=== PATIENT | male | born 1995 | race Caucasian/White ===

== ENCOUNTER 2018-01-09 15:21 | Day surgery (SDC) | payer OTHER, SELFPAY ==
[2018-01-09] VITALS (9 sets, daily range): BP systolic 105–123; BP diastolic 46–70; PULSE 59–67; RESP 14–18; TEMP 36.8–37.6; O2SAT 98–100; BMI 23.9; BMI 24.0
--- NOTE | 2018-01-09 15:43 | ED.DCSUM_ITS ---
- ER Visit Summary Date of Service: 01/09/18 Chief Complaint: Right lower quadrant pain History of Present Illness: The patient is a 22 M who developed periumbilical abdominal pain yesterday afternoon. He has had very poor appetite and not wanting to eat. Pain is now moved to the right lower quadrant. He has had some nausea but no vomiting. Denies any prior surgical history. Physical Examination: Vital signs significant for temperature 99.7, otherwise normal. Patient's lying in bed no acute distress. He is nontoxic appearing. Head neck examination unremarkable. Heart is regular rate and rhythm. Lung sounds are clear. Abdomen is soft with diffuse tenderness, worse in the right lower quadrant. He has guarding throughout. Hypoactive bowel sounds are noted. Test Results: CBC reveals white count of 13.8 with 74% neutrophils. Hemoglobin is concentrated at 17.2. Chemistry studies are significant for sodium of 135 and potassium 3.2. Emergency Department Course and Treatment: Patient was given morphine, Zofran, and IV fluids. Upon return of lab work 30 mEq potassium chloride were ordered. Patient was scheduled for CT scan, however Dr. Nixon presented to the emergency room to evaluate another patient. This patient was discussed and evaluated by him. Clinically the patient has appendicitis and Dr. Nixon will plan on taking him to the OR without need for CT scan. Treatment Plan: [] Disposition: Admit Impression: Acute appendicitis This note was generated with [employer] dictation software. It may contain incorrect words, spelling, and punctuation that were not noted in review of the chart prior to signing ED Disposition - Plan for ED Patient: Chief Complaint: Abd Pain Referrals: Care Physician,No Primary [Primary Care Provider] -
[2018-01-09] MEDS: 0.9% Normal Saline 1,000 ML 150 ML IV (16:12)
[2018-01-09] MEDS: Morphine 4 MG/ML Syringe IV (16:13)
[2018-01-09] MEDS: Ondansetron 4 MG/2 ML Vial IV (16:13)
[2018-01-09 16:32] LABS: Absolute Lymphocyte Count 2.07 X10^3/ul (0.83-4.51); Absolute Neutrophil Count 10.3 X10^3/uL (2.0-7.7); Basophil# 0.01 X10^3/uL; Basophil% 0.1 % (0-1); Eosinophil# 0.02 X10^3/uL; Eosinophils% 0.1 % (0-5); Hematocrit 49.6 % (40-54); Hemoglobin 17.2 g/dl (13.0-16.5); Lymphocyte # 2.07 X10^3/ul (4.0); Mean Corp Hgb Conc 34.7 g/gl (32-36); Mean Corpuscular Hgb 31.2 pg (27.0-32.0); Mean Platelet Vol. 10.2 fl (6.2-12.0); Monocyte# 1.38 X10^3/uL; Neutrophil # 10.27 X10^3/uL (2.7-7.7); Neutrophil % 74.7 % (47-70); Platelet Count 222 K/mm3 (150-450); RBC Distribution Width SD 39.3 fl (35.1-43.9); Red Blood Count 5.51 M/mm3 (4.6-6.2); White Blood Count 13.8 K/mm3 (4.4-11.0)
[2018-01-09 16:45] LABS: Anion Gap 8 (5-15); BUN 9 mg/dL (7-18); BUN/Creat Ratio 8.7 RATIO (10-20); Calcium,Total 9.7 mg/dL (8.5-10.1); Chloride 98 mmol/L (98-107); Creatinine, Serum 1.04 mg/dL (0.70-1.30); EST Glomerular Filtration Rate 94 mL/min (>60); Est Glom Filt Rate - Afr Amer 113 mL/min (>60); Estimated Creatinine Clearance 114.06 ml/min; Glucose 98 mg/dL (74-106); POSITIVE COUNT NO; POSITIVE DIFFERENTIAL NO; POSITIVE MORPHOLOGY NO; Potassium 3.2 mmol/L (3.5-5.1); Sodium Level 135 mmol/L (136-145)
--- NOTE | 2018-01-09 17:38 | PCM.CONS.GEN ---
Problem List (1) Acute appendicitis with localized peritonitis Status: Acute Reason for Consult Date of Consultation: 01/09/18 History of Present Illness: The patient is a 22 M who developed periumbilical abdominal pain yesterday afternoon. He has had very poor appetite and not wanting to eat. Pain is now moved to the right lower quadrant. He has had some nausea but no vomiting. Denies any prior surgical history. Patient does have pain to move or cough. Past Medical History Allergies No Known Allergies Allergy (Verified 01/09/18 15:25) Home Medications: Ambulatory Orders Medication Instructions Recorded Minocycline [Minocin] 100 mg PO DAILY 01/09/18 Smoking Status: Never smoker - *Family History Maternal History Items: No pertinent history Review of Systems Constitutional: Denies: Chills, Fever, Weight Change HEENT: Denies: Dysphasia, Ear Pain, Eye Pain, Head Aches, Hearing Changes, Sore Throat Cardiovascular: Denies: Chest Pain, Chest Pressure, Chest Tightness, Palpitations Respiratory: Denies: Cough, Hemoptysis, Shortness of breath at rest, Shortness of breath upon exertion, Wheezing Gastrointestinal: Reports: Abdominal Pain, Nausea. Denies: Vomiting Genitourinary: Denies: Dysuria, Frequency, Hematuria, Urgency Musculoskeletal: Denies: Joint Pain Patient Problems: Active and Suspected Problems Acute appendicitis with localized peritonitis (Acute) - Physical Exam General: Alert, Oriented x3 HEENT: Atraumatic, PERRLA, EOMI, Normocephalic Oral: Moist Mucosa Lungs: Clear to auscultation Cardiovascular: Regular rate, Regular Rhythm, No murmurs Abdomen: Soft - Patient has normal active bowel sounds, Tender - Patient has tenderness voluntary guarding positive Rovsing sign positive heeltap and positive cough sign Extremities: No clubbing, No cyanosis, No edema Skin: No rashes, No breakdown Musculoskeletal: No Tenderness to Palpation of Joints or Extremities Vital Signs Temp Pulse Resp BP Pulse Ox 99.2 F H 62 16 123/70 H 100 01/09/18 17:05 01/09/18 15:23 01/09/18 15:23 01/09/18 15:23 01/09/18 15:23 Weight: 167 lb Body Mass Index (BMI) 23.9 Laboratory Tests Past 24 Hrs 01/09/18 01/09/18 16:15 16:15 WBC 13.8 H RBC 5.51 Hgb 17.2 H Hct 49.6 MCV 90.0 MCH 31.2 MCHC 34.7 RDW 12.0 RDW Differential 39.3 Plt Count 222 MPV 10.2 Immature Gran % (Auto) 0.100 Neut % (Auto) 74.7 H Lymph % (Auto) 15.0 L [place] % (Auto) 10.0 Eos % (Auto) 0.1 Baso % (Auto) 0.1 Absolute Neuts (auto) 10.3 H Absolute Lymphs (auto) 2.07 Total Counted Not Reportable Sodium 135 L Potassium 3.2 L Chloride 98 Carbon Dioxide 29.0 Anion Gap 8 BUN 9 Creatinine 1.04 Estim Creat Clear Calc 114.06 Est GFR (MDRD) Af Amer 113 Est GFR (MDRD) Non-Af 94 BUN/Creatinine Ratio 8.7 L Glucose 98 Calcium 9.7 Assessment/Plan All Active Problems Acute appendicitis with localized peritonitis (Acute) My plan is perform a laparoscopic appendectomy on the patient. Risk benefits were discussed in great detail to include bleeding infection possible need for drain placement possible delayed abscesses. Injury to surrounding structures were also discussed. All questions asked were answered. I am opting not to get a CAT scan on this patient given the fact that his history is classic for appendicitis I do not believe that it is warranted.
--- NOTE | 2018-01-09 19:00 | APP_PTH ---
PATIENT: CARLTON SHIN [place] [facility] [place][id number] AGE/SX: 22/M ROOM: RE01/09/[address]: Dr. Hugo Nixon MD : 1995 BED: DIS: 01/10/2018 SPEC #: [id number] RECD: 01/10/18 08:25 STATUS: HEIDI DESAI #: [id number] NAN: 01/09/18 19:[address]: Hugo Nixon DEPT: SURGICAL PATHOLOGY RECD BY: Kirk Rendon ENTERED: 01/10/18 09:43 SP TYPE: APPENDIX OT DR: No Primary Care Phys Tissues: Appendix, NOS Procedures: Surgery Specimen Level III HEADER OPERATION: Laparoscopic, appendectomy PRE-OP DIAGNOSIS: Acute appendicitis TISSUE SUBMITTED: Appendix MICROSCOPIC DIAGNOSIS Appendix: Acute appendicitis and periappendicitis. SJ:destiny 01/11/18 MICROSCOPIC DESCRIPTION Slides are reviewed. GROSS DESCRIPTION Received is one container labeled with the patient's name and designated appendix. The specimen consists of a J-shaped appendix measuring 8 cm in length and up to 1.2 cm in average diameter. The attached periappendiceal adipose tissue measures up to 1.5 cm in width. The serosa is covered with borges, purulent exudate. No obvious perforation is identified. The lumen contains hemorrhagic material. No fecalith is identified. Product Info Specialist sections are submitted in one cassette. / SJ:destiny 01/10/18 TC:2 [facility]: [id number]
--- NOTE | 2018-01-09 19:18 | PCM.OPRPT ---
Problem List (1) Acute appendicitis with localized peritonitis Status: Acute Report of Operation Date of Procedure: 01/09/18 Pre-Operative Diagnosis: Acute appendicitis Post-Operative Diagnosis: Same Surgery/Procedure Performed:: Laparoscopic appendectomy Type of Anesthesia:: General Anesthesiologist: Nancy Smallwood Description of Procedure: Patient was brought in the operating room placed in supine position. Under excellent general trach intubation the abdomen was sterilely prepped and draped in usual fashion. Local was injected infraumbilically curvilinear incision was made. Dissection was carried down to the fascia. Fascia was grasped with a Kim. Varies needle was placed inside the abdomen. The abdomen was insufflated to 15 torr. A 10/12 trocar was placed without difficulty. Patient was placed in the head down and rotated the left. A suprapubic #5 trocar was placed in the left lower quadrant #5 trocar was placed both of these under direct visualization without injury to underlying structures. Inspection of the right lower quadrant revealed acute appendicitis. I dissected the omentum off the appendix dissected the terminal ileum off the appendix took the mesoappendix down with the Enseal device and then transected the base of the appendix with a 45 linear cutter. I had excellent hemostasis. The specimen and specimen bag and delivered through the umbilical port. I irrigated the right lower quadrant and the pelvis there was a small amount of purulent fluid but there was no pus. A good hemostasis on my suture line remove the trochars under direct visualization good hemostasis was noted I closed the fascia the umbilical port with a figure 8 stitch of 0 Vicryl. Skin incisions were closed with a particular stitches of 4-0 Monocryl. Steri-Strips are applied sterile dressings were applied the patient tolerated the procedure well. - Admit VTE Documentation VTE Present on Admission: No VTE Mechan Device Prophylaxis: SCD's VTE Pharm Prophylaxis ordered?: No Reason prophylaxis not ordered:: Treatment Not Indicated
[2018-01-09] MEDS: Bupivacaine Mpf 0.5% 30 ML VIAL (19:22)
[2018-01-10] VITALS: PULSE 81
[2018-01-10] MEDS: 0.9% NaCl IVPB Med Flush (250 mL) 15 ML IV (00:24)
[2018-01-10] MEDS: Piperacil/Tazobactam 3.375 GM/50 ML ML IV ×2 (00:24→08:02)
[2018-01-10 00:28] VITALS: BP 112/55; PULSE 77; RESP 16; TEMP 36.6; O2SAT 99
[2018-01-10 03:43] VITALS: PULSE 50
[2018-01-10] MEDS: Lactated Ringers 1,000 ML 65 ML IV (05:43)
[2018-01-10 05:49] VITALS: BP 105/53; PULSE 53; RESP 14; TEMP 36.8; O2SAT 99
[2018-01-10 07:51] VITALS: PULSE 64
--- NOTE | 2018-01-10 07:54 | PCM.DC.APPY ---
Discharge Diet: Light diet - advance as tolerated Discharge Activity: May Not Drive - for 3-5 days or while taking narcotic pain meds. May shower in (days): 1 Call your doctor if your incision/area has: Continuous Slow Oozing, Sudden Increased Bleeding, Increased Pain/ Swelling, Increased Redness, Foul Smelling Discharge Call your doctor if you observe: Fever of 101 or Higher Suture Line Care: Avoid Pulling/Pushing, Avoid Pinching/Bending Cleanse incision/area with: Soap & Water Additional Dressing/Incision Instructions:: Keep dressing clean and dry. Change or remove dressing in 2 days. Leave steri strips for 1 week. May protect with a gauze bandaid. Medications to take at Discharge Minocycline [Minocin] 100 mg PO DAILY 01/09/18 Hydrocodone Bitart/Apap 5-325 [[place] 5/325] 1 - 2 tab PO Q6H PRN PRN 2 Days #5 tab 01/10/18 Allergies/Adverse Reactions: Allergies No Known Allergies Allergy (Verified 01/09/18 15:25) The following prescriptions were given: Hydrocodone Bitart/Apap 5-325 [[place] 5/325] 1 - 2 tab PO Q6H PRN PRN 2 Days #5 tab PRN Reason: Mild-Moderate (pain scale 1-5) Primary Care Physician: Care Physician,No Primary [Primary Care Provider] - Test Results: Test results from this visit will be discussed in further detail at your follow-up appointment, if applicable. Please Follow Up With: Chioma Reyes PA-C - [phone] When: 7-10 days Proposed Discharge Date: 01/10/18
--- NOTE | 2018-01-10 07:58 | PN.SURG_ITS ---
Patient Problems: Active and Suspected Problems Acute appendicitis with localized peritonitis (Acute) Subjective: Patient evaluated resting comfortably in bed. He denies nausea, vomiting, fever. Tolerating clear liquids. Small amount of flatus. Urinating well. Denies abdominal pain/discomfort. - Physical Exam General: Alert, Oriented x3, Cooperative Abdomen: Bowel Sounds Present, Soft, Non Tender, - - Incisions c/d/i. Minimal amount of dried blood noted on the umbilical dressing. No erythema or signs of infection. Vital Signs Temp Pulse Resp BP Pulse Ox 98.2 F 64 14 105/53 L 99 01/10/18 05:49 01/10/18 07:51 01/10/18 05:49 01/10/18 05:49 01/10/18 05:49 Oxygen Delivery Method Room Air Weight: 167 lb 2.751 oz Body Mass Index (BMI) 24.0 Intake and Output for Last 24 Hours 01/08/18 01/09/18 01/10/18 23:59 23:59 23:59 Intake Total 1300 / 1300 1575 / 1575 Output Total 2700 / 2700 Balance 1300 / 1300 -1125 / -1125 Laboratory Tests Past 24 Hrs 01/09/18 01/09/18 16:15 16:15 WBC 13.8 H RBC 5.51 Hgb 17.2 H Hct 49.6 MCV 90.0 MCH 31.2 MCHC 34.7 RDW 12.0 RDW Differential 39.3 Plt Count 222 MPV 10.2 Immature Gran % (Auto) 0.100 Neut % (Auto) 74.7 H Lymph % (Auto) 15.0 L [place] % (Auto) 10.0 Eos % (Auto) 0.1 Baso % (Auto) 0.1 Absolute Neuts (auto) 10.3 H Absolute Lymphs (auto) 2.07 Total Counted Not Reportable Sodium 135 L Potassium 3.2 L Chloride 98 Carbon Dioxide 29.0 Anion Gap 8 BUN 9 Creatinine 1.04 Estim Creat Clear Calc 114.06 Est GFR (MDRD) Af Amer 113 Est GFR (MDRD) Non-Af 94 BUN/Creatinine Ratio 8.7 L Glucose 98 Calcium 9.7 Medical Necessity - Tobacco Use Smoking Status: Never smoker Assessment/Plan All Active Problems Acute appendicitis with localized peritonitis (Acute) I am following this patient in conjunction with Dr. Nixon S/p laparoscopic appendectomy Ready for discharge Code Visit Inpatient E&M: 25141 Subs Hosp L1 - Post-op charge
[2018-01-10 08:00] VITALS: BP 107/52; PULSE 53; RESP 16; TEMP 36.9; O2SAT 98
== END 2018-01-10 11:23 | disposition home or self-care (01) ==
LOC: ED 16:32 → SDC 17:47 → MS2 01-10 08:57
PROVIDERS: Emergency Provider Emergency Medicine; Visit Provider Surgery
PROC: 0DTJ4ZZ Resection of Appendix, Percutaneous Endoscopic Approach (ICD-10-PCS; CPT 44970; principal; 2018-01-09 19:00)
DX: K35.3 Acute appendicitis with localized peritonitis (principal); Q23.1 Congenital insufficiency of aortic valve
CPT/HCPCS: 44970; 80048; 85025; 88304; 99285; J7030; J7050; J7120; C1760; J2405